=== PATIENT | male | born 1940 | race Caucasian/White ===

== ENCOUNTER 2021-12-06 12:10 | Outpatient (CLI) | payer MEDICARE, BC ==
[2021-12-06 13:19] LABS: Hemoglobin 12.7 g/dL (13.5-17.5); Mean Corpuscular HGB CONC 33.2 g/dL (32.0-36.0); Mean Corpuscular Hemoglobin 30.6 pg (27.0-33.0); Mean Corpuscular Volume 92.3 fl (81.2-95.1); Mean Platelet Volume 8.8 fl (7.4-10.4); Platelet Count 496 10x3/uL (150-450); RBC Distribution Width 14.4 % (11.5-14.5); Red Blood Cell (RBC) Count 4.15 10x6/uL (4.32-5.72); White Blood Cell (WBC) Count 11.2 10x3/uL (3.5-10.5)
[2021-12-06 13:29] LABS: Anion Gap 14 mmol/L (10-20); BUN (Urea Nitrogen) 22 mg/dL (8.4-25.7); Calc. Creatinine Clearance 0 mL/min (70-130); Calcium 9.8 mg/dL (7.8-10.44); Carbon Dioxide 25 mmol/L (23-31); Chloride 97 mmol/L (98-107); Glucose 104 mg/dL (83-110); Potassium 4.2 mmol/L (3.5-5.1); Sodium 132 mmol/L (136-145)
[2021-12-06 23:39] LABS: SARS-CoV-2 PCR by NAA Not Detected (NotDetected)
== END 2021-12-06 12:11 | disposition home or self-care (01) ==
LOC: LABBT 12:10
PROVIDERS: ATTEND Urology
DX: Z01.818 Encounter for other preprocedural examination (principal); N40.1 Benign prostatic hyperplasia with lower urinary tract symptoms; Z20.822 Contact with and (suspected) exposure to COVID-19; R33.9 Retention of urine, unspecified
CPT/HCPCS: 80048; 85027; 87077; 87086; 87186; 93005; U0003; U0005; 93010

== ENCOUNTER 2023-07-07 15:06 | Inpatient (IN) | payer MEDICARE, BC ==
[2023-07-07 15:31] VITALS: BMI 23.0
[2023-07-07] MEDS ORDERED: FLU VACC QS2023(65UP)/MF59C/PF 60 MCG/0.5 ML SYRINGE IM ONE (16:00)
[2023-07-07] MEDS ORDERED: Ondansetron ODT 4 MG TAB PO PRN (17:27)
[2023-07-07] MEDS ORDERED: Ondansetron PF 4 MG/2 ML Vial IVP PRN (17:27)
[2023-07-07] MEDS ORDERED: Potassium Chloride 20 MEQ TAB PO SCH (18:00)
[2023-07-07] MEDS: Cefepime 1 GM in Sodium Chloride 0.9% 100 ML IVPB SCH (18:44)
[2023-07-07 19:35] LABS: Magnesium 1.5 mg/dL (1.6-2.6)
[2023-07-07] MEDS: Rosuvastatin 20 MG TAB PO SCH (22:06)
[2023-07-07] MEDS ORDERED: Losartan 25 MG TAB PO SCH (22:15)
[2023-07-07] MEDS ORDERED: Magnesium 2 GM/50 ML(in water) 2 GM in Premix 1 BAG IVPB SCH (22:30)
[2023-07-08] MEDS: Cefepime 1 GM in Sodium Chloride 0.9% 100 ML IVPB SCH ×2 (05:27→19:01)
[2023-07-08] MEDS: Levothyroxine Sodium 75 MCG TAB PO SCH (05:29)
[2023-07-08 05:34] LABS: Hematocrit 38.9 % (42.0-52.0); Hemoglobin 13.6 g/dL (14.0-18.0); Mean Corpuscular Hemoglobin 31.5 pg (27.0-31.0); Mean Platelet Volume 9.6 fL (7.4-10.4); Platelet Count 231 10x3/uL (130-400); RBC Distribution Width 14.7 % (11.5-14.5); Red Blood Cell (RBC) Count 4.32 mill/uL (4.70-6.10); White Blood Cell (WBC) Count 26.2 10x3/uL (4.8-10.8)
[2023-07-08 05:36] LABS: Delete Auto Diff?? YES; Manual Diff?? YES
[2023-07-08 06:04] LABS: Burr Cells SLIGHT = 2-5 cells HPF (0-1); CellaVision Operator ID lab.abc; Eosinophils 1 % (0-10); Large Platelets 1.7 % (0-5); Lymphocytes 6 % (21-51); Monocytes 4 % (0-10); Neutrophil 87 % (42-75); Platelet Adequacy Comment Platelets Normal; Reactive Lymphocytes 2 % (0-10); Smudge Cells 5.2 %; Total Cell Count 115; Toxic Granulation SLIGHT
[2023-07-08 06:20] LABS: Anion Gap 14 mmol/L (10-20); BUN (Urea Nitrogen) 8 mg/dL (8.4-25.7); Calc. Creatinine Clearance 115 mL/min (70-130); Calcium 8.8 mg/dL (7.8-10.44); Carbon Dioxide 21 mmol/L (23-31); Chloride 99 mmol/L (98-107); Estimated GFR 100; Glucose 135 mg/dL (83-110); Potassium 3.2 mmol/L (3.5-5.1); Sodium 131 mmol/L (136-145)
[2023-07-08] MEDS: Loratadine 10 MG TAB PO SCH (09:18)
[2023-07-08] MEDS: Tamsulosin HCl 0.4 MG CAP PO SCH (09:18)
[2023-07-08] MEDS: Losartan 25 MG TAB PO SCH (09:19)
[2023-07-08] MEDS: Donepezil HCl 5 MG TAB PO SCH (09:23)
[2023-07-08] MEDS ORDERED: Sodium Chloride 0.9% 250 ML IV SCH (13:45)
[2023-07-08] MEDS ORDERED: Piperacillin/Tazobactam 3.375 GM in Sodium Chloride 0.9% 100 ML IVPB SCH ×2 (15:00→18:00)
[2023-07-08] MEDS ORDERED: Cefepime 2 GM in Sodium Chloride 0.9% 100 ML IVPB SCH (18:00)
[2023-07-08] MEDS: Piperacillin/Tazobactam 3.375 GM in Sodium Chloride 0.9% 100 ML IVPB SCH (20:00)
[2023-07-08] MEDS: Rosuvastatin 20 MG TAB PO SCH (20:00)
[2023-07-09] MEDS: Piperacillin/Tazobactam 3.375 GM in Sodium Chloride 0.9% 100 ML IVPB SCH ×3 (03:55→20:02)
[2023-07-09 04:22] LABS: #Basophils 0.1 thou/uL (0.0-0.2); #Eosinphils 0.2 thou/uL (0.0-0.7); #Monocytes 1.7 thou/uL (0.11-0.59); %Basophils 0.4 % (0.0-1.0); %Eosinophils 0.9 % (0.0-10.0); %Lymphocytes 9.9 % (21.0-51.0); %Monocytes 8.5 % (0.0-10.0); %Neutrophils 79.1 % (42.0-75.0); Hematocrit 35.4 % (42.0-52.0); Hemoglobin 12.3 g/dL (14.0-18.0); Mean Corpuscular HGB CONC 34.7 g/dL (32.0-36.0); Mean Corpuscular Hemoglobin 31.7 pg (27.0-31.0); Mean Corpuscular Volume 91.2 fl (78.0-98.0); Mean Platelet Volume 9.7 fL (7.4-10.4); Platelet Count 239 10x3/uL (130-400); RBC Distribution Width 14.9 % (11.5-14.5); Red Blood Cell (RBC) Count 3.88 mill/uL (4.70-6.10); White Blood Cell (WBC) Count 20.2 10x3/uL (4.8-10.8)
[2023-07-09] MEDS: Cefepime 1 GM in Sodium Chloride 0.9% 100 ML IVPB SCH (06:27)
[2023-07-09] MEDS: Levothyroxine Sodium 75 MCG TAB PO SCH (06:28)
[2023-07-09 08:54] LABS: Anion Gap 11 mmol/L (10-20); BUN (Urea Nitrogen) 12 mg/dL (8.4-25.7); Calc. Creatinine Clearance 97 mL/min (70-130); Calcium 8.8 mg/dL (7.8-10.44); Carbon Dioxide 21 mmol/L (23-31); Chloride 101 mmol/L (98-107); Estimated GFR 95; Glucose 129 mg/dL (83-110); Potassium 2.9 mmol/L (3.5-5.1); Sodium 130 mmol/L (136-145)
[2023-07-09] MEDS: Tamsulosin HCl 0.4 MG CAP PO SCH (09:49)
[2023-07-09] MEDS: Loratadine 10 MG TAB PO SCH (09:49)
[2023-07-09] MEDS: Donepezil HCl 5 MG TAB PO SCH (09:52)
[2023-07-09] MEDS: Potassium Chloride 20 MEQ in Premix 1 BAG IVPB SCH ×4 (12:59→20:02)
[2023-07-09] MEDS: Cefepime 2 GM in Sodium Chloride 0.9% 100 ML IVPB SCH (17:37)
[2023-07-09] MEDS: Rosuvastatin 20 MG TAB PO SCH (20:02)
[2023-07-09] MEDS: Losartan 25 MG TAB PO SCH (20:02)
[2023-07-09] MEDS: Acetaminophen 325 MG TAB PO PRN (20:09)
[2023-07-10] MEDS: Cefepime 2 GM in Sodium Chloride 0.9% 100 ML IVPB SCH ×2 (05:24→18:16)
[2023-07-10] MEDS: Levothyroxine Sodium 75 MCG TAB PO SCH (05:24)
[2023-07-10] MEDS: Piperacillin/Tazobactam 3.375 GM in Sodium Chloride 0.9% 100 ML IVPB SCH ×3 (05:25→20:58)
[2023-07-10 05:47] LABS: #Basophils 0.1 thou/uL (0.0-0.2); #Eosinphils 0.1 thou/uL (0.0-0.7); #Monocytes 1.7 thou/uL (0.11-0.59); #Neutrophils 14.3 thou/uL (1.40-6.50); %Basophils 0.5 % (0.0-1.0); %Eosinophils 0.7 % (0.0-10.0); %Lymphocytes 9.6 % (21.0-51.0); %Monocytes 9.5 % (0.0-10.0); %Neutrophils 78.7 % (42.0-75.0); Hemoglobin 12.3 g/dL (14.0-18.0); Mean Corpuscular HGB CONC 35.1 g/dL (32.0-36.0); Mean Corpuscular Hemoglobin 31.7 pg (27.0-31.0); Mean Corpuscular Volume 90.2 fl (78.0-98.0); Mean Platelet Volume 9.5 fL (7.4-10.4); Platelet Count 237 10x3/uL (130-400); Red Blood Cell (RBC) Count 3.88 mill/uL (4.70-6.10); White Blood Cell (WBC) Count 18.2 10x3/uL (4.8-10.8)
[2023-07-10 06:19] LABS: Anion Gap 9 mmol/L (10-20); BUN (Urea Nitrogen) 9 mg/dL (8.4-25.7); Calc. Creatinine Clearance 117 mL/min (70-130); Calcium 8.8 mg/dL (7.8-10.44); Carbon Dioxide 23 mmol/L (23-31); Chloride 102 mmol/L (98-107); Estimated GFR 100; Glucose 121 mg/dL (83-110); Potassium 3.2 mmol/L (3.5-5.1); Sodium 131 mmol/L (136-145)
[2023-07-10] MEDS ORDERED: Potassium Chloride 40 MEQ in Premix 1 BAG IVPB SCH (08:00)
[2023-07-10] MEDS: Loratadine 10 MG TAB PO SCH (08:53)
[2023-07-10] MEDS: Losartan 25 MG TAB PO SCH ×2 (08:53→21:00)
[2023-07-10] MEDS: Tamsulosin HCl 0.4 MG CAP PO SCH (08:53)
[2023-07-10] MEDS: Donepezil HCl 5 MG TAB PO SCH (08:53)
[2023-07-10] MEDS: Acetaminophen 325 MG TAB PO PRN (21:00)
[2023-07-10] MEDS: Rosuvastatin 20 MG TAB PO SCH (21:00)
[2023-07-10] MEDS: traZODone HCl 50 MG TAB PO PRN (21:00)
[2023-07-11] MEDS: Piperacillin/Tazobactam 3.375 GM in Sodium Chloride 0.9% 100 ML IVPB SCH ×3 (05:06→20:11)
[2023-07-11] MEDS: Cefepime 2 GM in Sodium Chloride 0.9% 100 ML IVPB SCH (05:07)
[2023-07-11] MEDS: Levothyroxine Sodium 75 MCG TAB PO SCH (05:07)
[2023-07-11 06:56] LABS: #Basophils 0.1 thou/uL (0.0-0.2); #Eosinphils 0.1 thou/uL (0.0-0.7); #Monocytes 1.1 thou/uL (0.11-0.59); #Neutrophils 8.2 thou/uL (1.40-6.50); %Basophils 0.5 % (0.0-1.0); %Eosinophils 0.6 % (0.0-10.0); %Monocytes 10.3 % (0.0-10.0); %Neutrophils 75.1 % (42.0-75.0); Hematocrit 30.7 % (42.0-52.0); Hemoglobin 10.5 g/dL (14.0-18.0); Mean Corpuscular HGB CONC 34.2 g/dL (32.0-36.0); Mean Corpuscular Hemoglobin 31.5 pg (27.0-31.0); Mean Corpuscular Volume 92.2 fl (78.0-98.0); Mean Platelet Volume 9.5 fL (7.4-10.4); Platelet Count 210 10x3/uL (130-400); RBC Distribution Width 15.3 % (11.5-14.5); Red Blood Cell (RBC) Count 3.33 mill/uL (4.70-6.10); White Blood Cell (WBC) Count 10.9 10x3/uL (4.8-10.8)
[2023-07-11 07:29] LABS: Anion Gap 11 mmol/L (10-20); BUN (Urea Nitrogen) 9 mg/dL (8.4-25.7); Calc. Creatinine Clearance 129 mL/min (70-130); Calcium 6.8 mg/dL (7.8-10.44); Carbon Dioxide 18 mmol/L (23-31); Chloride 109 mmol/L (98-107); Estimated GFR 103; Glucose 103 mg/dL (83-110); Potassium 2.7 mmol/L (3.5-5.1); Sodium 135 mmol/L (136-145)
[2023-07-11] MEDS: Donepezil HCl 5 MG TAB PO SCH (08:19)
[2023-07-11] MEDS: Losartan 25 MG TAB PO SCH ×2 (08:19→20:12)
[2023-07-11] MEDS: Loratadine 10 MG TAB PO SCH (08:20)
[2023-07-11] MEDS: Tamsulosin HCl 0.4 MG CAP PO SCH (08:20)
[2023-07-11] MEDS ORDERED: Electrolyte Replacement Protocol 1 EACH FS SCH (13:45)
[2023-07-11] MEDS ORDERED: Calcium Gluconate 4.6 MEQ in Sodium Chloride 0.9% 100 ML IVPB ONE (13:57)
[2023-07-11] MEDS ORDERED: CALCIUM GLUC 1 GM/NS 50 ML 1 GM in Premix 1 BAG IVPB SCH (14:00)
[2023-07-11] MEDS ORDERED: Potassium Chloride 40 MEQ in Premix 1 BAG IVPB SCH (14:00)
[2023-07-11] MEDS ORDERED: Potassium Chloride 20 MEQ TAB PO SCH (14:00)
[2023-07-11] MEDS ORDERED: Loperamide HCl 2 MG CAP PO PRN (14:22)
[2023-07-11] MEDS ORDERED: Saccharomyces boulardii 250 MG CAP PO SCH (14:45)
[2023-07-11 15:59] LABS: ALT (SGPT) 18 U/L (8-55); AST (SGOT) 17 U/L (5-34); Albumin 3.3 g/dL (3.4-4.8); Alkaline Phosphatase 199 U/L (40-110); Bilirubin, Direct 0.2 mg/dL (0.1-0.3); Bilirubin, Total 0.5 mg/dL (0.2-1.2); Protein, Total 5.2 g/dL (5.8-8.1)
[2023-07-11] MEDS: Potassium Chloride 20 MEQ in Premix 1 BAG IVPB SCH ×2 (16:39→18:06)
[2023-07-11] MEDS: Rosuvastatin 20 MG TAB PO SCH (20:12)
[2023-07-11] MEDS: traZODone HCl 50 MG TAB PO PRN (20:12)
[2023-07-11] MEDS: Acetaminophen 325 MG TAB PO PRN (20:16)
[2023-07-12] MEDS: Piperacillin/Tazobactam 3.375 GM in Sodium Chloride 0.9% 100 ML IVPB SCH ×2 (03:48→11:52)
[2023-07-12 05:02] LABS: #Basophils 0.1 thou/uL (0.0-0.2); #Eosinphils 0.1 thou/uL (0.0-0.7); #Monocytes 1.6 thou/uL (0.11-0.59); #Neutrophils 10.5 thou/uL (1.40-6.50); %Basophils 0.8 % (0.0-1.0); %Eosinophils 0.7 % (0.0-10.0); %Lymphocytes 14.8 % (21.0-51.0); %Neutrophils 71.3 % (42.0-75.0); Hematocrit 35.9 % (42.0-52.0); Hemoglobin 12.1 g/dL (14.0-18.0); Mean Corpuscular HGB CONC 33.7 g/dL (32.0-36.0); Mean Corpuscular Hemoglobin 31.9 pg (27.0-31.0); Mean Corpuscular Volume 94.7 fl (78.0-98.0); Mean Platelet Volume 9.7 fL (7.4-10.4); Platelet Count 244 10x3/uL (130-400); RBC Distribution Width 15.4 % (11.5-14.5); Red Blood Cell (RBC) Count 3.79 mill/uL (4.70-6.10); White Blood Cell (WBC) Count 14.8 10x3/uL (4.8-10.8)
[2023-07-12 05:37] LABS: Anion Gap 14 mmol/L (10-20); BUN (Urea Nitrogen) 7 mg/dL (8.4-25.7); Calc. Creatinine Clearance 99 mL/min (70-130); Calcium 8.9 mg/dL (7.8-10.44); Carbon Dioxide 20 mmol/L (23-31); Chloride 102 mmol/L (98-107); Estimated GFR 95; Glucose 111 mg/dL (83-110); Potassium 3.8 mmol/L (3.5-5.1); Sodium 132 mmol/L (136-145)
[2023-07-12] MEDS: Levothyroxine Sodium 75 MCG TAB PO SCH (06:04)
[2023-07-12] MEDS: Donepezil HCl 5 MG TAB PO SCH (08:20)
[2023-07-12] MEDS: Saccharomyces boulardii 250 MG CAP PO SCH (08:20)
[2023-07-12] MEDS: Tamsulosin HCl 0.4 MG CAP PO SCH (08:21)
[2023-07-12] MEDS: Losartan 25 MG TAB PO SCH (08:21)
[2023-07-12] MEDS: Loratadine 10 MG TAB PO SCH (08:21)
[2023-07-12] MEDS ORDERED: Saccharomyces boulardii 250 MG CAP PO SCH (09:00)
[2023-07-12] MEDS ORDERED: Melatonin 3 MG TAB PO PRN (16:44)
[2023-07-12] MEDS: Carvedilol 6.25 MG TAB PO SCH (17:50)
[2023-07-12] MEDS ORDERED: Fosfomycin 3 GM/Packet PO SCH (18:30)
[2023-07-12] MEDS: Rosuvastatin 20 MG TAB PO SCH (20:21)
[2023-07-12] MEDS: traZODone HCl 50 MG TAB PO PRN (20:21)
[2023-07-12] MEDS ORDERED: Aspirin 81 mg Enteric Coated Tablet PO SCH (21:00)
[2023-07-12] MEDS ORDERED: Donepezil HCl 10 MG TAB PO SCH (21:00)
[2023-07-12] MEDS ORDERED: Magnesium Glycinate [Mag Glycinate] 100 MG Tablet PO SCH (21:00)
[2023-07-13] MEDS: Levothyroxine Sodium 75 MCG TAB PO SCH (05:36)
[2023-07-13 05:53] LABS: #Basophils 0.1 thou/uL (0.0-0.2); #Eosinphils 0.1 thou/uL (0.0-0.7); #Monocytes 1.1 thou/uL (0.11-0.59); #Neutrophils 8.6 thou/uL (1.40-6.50); %Basophils 0.6 % (0.0-1.0); %Eosinophils 0.5 % (0.0-10.0); %Lymphocytes 17.6 % (21.0-51.0); %Monocytes 9.3 % (0.0-10.0); %Neutrophils 69.6 % (42.0-75.0); Hematocrit 31.6 % (42.0-52.0); Mean Corpuscular HGB CONC 34.8 g/dL (32.0-36.0); Mean Corpuscular Hemoglobin 31.8 pg (27.0-31.0); Mean Corpuscular Volume 91.3 fl (78.0-98.0); Mean Platelet Volume 9.4 fL (7.4-10.4); Platelet Count 269 10x3/uL (130-400); RBC Distribution Width 15.2 % (11.5-14.5); Red Blood Cell (RBC) Count 3.46 mill/uL (4.70-6.10); White Blood Cell (WBC) Count 12.3 10x3/uL (4.8-10.8)
[2023-07-13 06:19] LABS: Anion Gap 10 mmol/L (10-20); BUN (Urea Nitrogen) 12 mg/dL (8.4-25.7); Calc. Creatinine Clearance 124 mL/min (70-130); Carbon Dioxide 25 mmol/L (23-31); Chloride 100 mmol/L (98-107); Estimated GFR 102; Glucose 120 mg/dL (83-110); Magnesium 1.5 mg/dL (1.6-2.6); Sodium 132 mmol/L (136-145)
[2023-07-13] MEDS ORDERED: Magnesium 2 GM/50 ML(in water) 2 GM in Premix 1 BAG IVPB SCH (08:00)
[2023-07-13] MEDS ORDERED: Potassium Chloride 20 MEQ TAB PO SCH ×2 (08:00→09:00)
[2023-07-13] MEDS: Tamsulosin HCl 0.4 MG CAP PO SCH (08:45)
[2023-07-13] MEDS: Loratadine 10 MG TAB PO SCH (08:45)
[2023-07-13] MEDS: Saccharomyces boulardii 250 MG CAP PO SCH (08:46)
[2023-07-13] MEDS: Carvedilol 6.25 MG TAB PO SCH ×2 (08:46→17:07)
[2023-07-13] MEDS ORDERED: Losartan 25 MG TAB PO SCH (09:00)
[2023-07-13] MEDS ORDERED: Clopidogrel Bisulfate 75 MG TAB PO SCH (09:00)
[2023-07-13] MEDS ORDERED: Furosemide 20 MG TAB PO SCH (09:00)
[2023-07-13] MEDS ORDERED: Multivit, Therapeutic 1 TAB PO SCH (09:00)
[2023-07-13] MEDS ORDERED: Lidocaine Jelly 2% Urojet 10 ML I-URETHRAL SCH (10:45)
[2023-07-13] MEDS ORDERED: Lidocaine 2% 6 ML (Jelly) SYR TOP SCH (11:15)
[2023-07-13 16:45] VITALS: BP 152/77; TEMP 98.1
== END 2023-07-13 18:30 | disposition home or self-care (01) | DRG 872 ==
LOC: 2SW 15:06 → MSONC 16:16
PROVIDERS: ADMIT Emergency Medicine; ATTEND Family Medicine
DX: A41.52 Sepsis due to Pseudomonas (principal); C25.9 Malignant neoplasm of pancreas, unspecified; N39.0 Urinary tract infection, site not specified; E87.1 Hypo-osmolality and hyponatremia; I10 Essential (primary) hypertension; E78.5 Hyperlipidemia, unspecified; M19.90 Unspecified osteoarthritis, unspecified site; E03.9 Hypothyroidism, unspecified; I95.9 Hypotension, unspecified; E87.6 Hypokalemia; R33.9 Retention of urine, unspecified; Z88.8 Allergy status to other drugs, medicaments and biological substances; Z79.890 Hormone replacement therapy; Z79.899 Other long term (current) drug therapy; Z79.82 Long term (current) use of aspirin; Z90.89 Acquired absence of other organs; Z98.49 Cataract extraction status, unspecified eye; Z90.49 Acquired absence of other specified parts of digestive tract; Z92.21 Personal history of antineoplastic chemotherapy; Z85.46 Personal history of malignant neoplasm of prostate
CPT/HCPCS: 36415; 71045; 71260; 74177; 80048; 80053; 80076; 81001; 82805; 83605; 83690; 83735; 84484; 85025; 85060; 85610; 85730; 87040; 87077; 87086; 87186; 93005; 93010; 94760; 96365; 96375; 96376; J0613; J0692; J1642; J2543; J3370; J3475; J3480; J3490; J7030; J7050; Q9967